=== PATIENT | male | born 2000 | race Caucasian/White ===

== ENCOUNTER 2024-07-19 11:15 | Emergency (ER) | payer OTHER ==
[~2024-07-19] VITALS: Ht 180.3 cm; Wt 75.4 kg
[2024-07-19 16:35] VITALS: BP 148/76; TEMP 98; O2SAT 97
== END 2024-07-19 16:36 | disposition home or self-care (01) ==
LOC: M ED 11:15
DX: S60.932A Unspecified superficial injury of left thumb, initial encounter (principal); Y92.9 Unspecified place or not applicable; Y93.9 Activity, unspecified; Y99.0 Civilian activity done for income or pay

== ENCOUNTER → 2024-07-26 | Outpatient (CLI) | payer OTHER | LOC: M PLAIMG 09:51 | DX: S63.102A Unspecified subluxation of left thumb, initial encounter (principal); M25.642 Stiffness of left hand, not elsewhere classified; S63.642A Sprain of metacarpophalangeal joint of left thumb, initial encounter; W18.30XA Fall on same level, unspecified, initial encounter; Y92.009 Unspecified place in unspecified non-institutional (private) residence as the place of occurrence of the external cause ==